=== PATIENT | female | born 1980 | race Caucasian/White ===

== ENCOUNTER 2024-02-20 14:06 | Inpatient (IN) ==
[2024-02-20] MEDS: Ondansetron 4 mg VIAL 2 MG/ML 2 ml VIAL IV ONE (16:12)
[2024-02-20] MEDS: Cefepime 2 GM in Dextrose 2 GM/50 ML BAG IV ONE (16:44)
[2024-02-20 16:48] LABS: ABS Basophils 0.1 10^3/uL (0.0-0.1); ABS Eosinophils 0.1 10^3/uL (0.0-0.5); ABS Lymphocytes 1.3 10^3/uL (1.0-4.8); ABS Monocytes 0.8 10^3/uL (0.0-0.9); ABS Neutrophils 5.9 10^3/uL (1.5-7.6); Eosinophil % 1.5 %; Hematocrit 29.4 % (35-45); Hemoglobin 10.1 g/dL (11.5-14.3); Lymphocyte % 15.9 %; Mean Corpuscular Hemoglobin 30.8 pg (27-33); Mean Corpuscular Hgb Conc 34.4 g/dL (31-36); Mean Corpuscular Volume 89.7 fL (80-97); Mean Platelet Volume 7.6 fL (7.5-11.2); Platelet Count 554 10^3/uL (150-450); Red Blood Count 3.28 10^6/uL (3.63-4.92); Red Cell Distribution Width 14.1 % (12-17); White Blood Count 8.2 10^3/uL (3.8-11.8)
[2024-02-20] MEDS: Lactated Ringers 1000 ml BAG 1,000 ML IV SCH (16:52)
[2024-02-20] MEDS: metroNIDAZOLE IV 500 MG/100ML 500 MG/100 ML BAG IVPB ONE (17:08)
[2024-02-20 17:12] LABS: ALT 10 U/L (7-52); AST 19 U/L (13-39); Albumin 3.9 g/dL (3.2-5.2); Albumin/Globulin Ratio 1.6 (1-3); Alkaline Phosphatase 64 U/L (35-149); Anion Gap 6 mmol/L (2-16); Blood Urea Nitrogen 17 mg/dL (6-24); C Reactive Protein 21.28 mg/L (<8.01); CO2 Carbon Dioxide 26 mmol/L (22-32); Chloride 107 mmol/L (101-111); Creatinine, Serum 0.99 mg/dL (0.51-0.95); Globulin 2.4 g/dL (2-4); Glucose 86 mg/dL (70-100); Sodium 139 mmol/L (135-145); Total Bilirubin 0.2 mg/dL (0.2-1.0); Total Protein 6.3 g/dL (6.4-8.9)
[2024-02-20 17:16] LABS: HCG Pregnancy < 0.60 mIU/mL
[2024-02-20] MEDS: HYDROmorphone 1 MG/1 ML SYRINGE IV SLOW PU ONE (18:36)
[2024-02-20] MEDS: Vancomycin 1,000 MG in NS 0.9% 250 ml 250 ML IVPB ONE (19:39)
[2024-02-20] MEDS ORDERED: Morphine 2 MG/ML SYRINGE IV PRN (21:11)
[2024-02-20] MEDS ORDERED: Senna TAB 8.6 mg TAB PO PRN (21:12)
[2024-02-20] MEDS ORDERED: Polyethylene Glycol 3350 17 GM PACKET PO PRN (21:12)
[2024-02-20] MEDS ORDERED: Vancomycin per Pharmacy 1 EA NOTE FOLLOW UP SCH (22:00)
[2024-02-20] MEDS: Vancomycin 1000 MG in NS 0.9% 250 ML IVPB SCH (22:32)
[2024-02-20] MEDS ORDERED: HYDROmorphone 0.5 MG/0.5 ML SYRINGE IV SLOW PU PRN (23:28)
[2024-02-21] MEDS: Heparin 5000 UNITS/ML 1 mL VIAL SUBCUT ONE (01:41)
[2024-02-21 06:14] LABS: ABS Basophils 0.1 10^3/uL (0.0-0.1); ABS Eosinophils 0.2 10^3/uL (0.0-0.5); ABS Lymphocytes 1.5 10^3/uL (1.0-4.8); ABS Monocytes 0.8 10^3/uL (0.0-0.9); ABS Neutrophils 4.5 10^3/uL (1.5-7.6); Eosinophil % 2.9 %; Hematocrit 27.5 % (35-45); Hemoglobin 9.3 g/dL (11.5-14.3); Lymphocyte % 20.7 %; Mean Corpuscular Hemoglobin 30.8 pg (27-33); Mean Corpuscular Hgb Conc 33.9 g/dL (31-36); Mean Corpuscular Volume 90.8 fL (80-97); Mean Platelet Volume 7.5 fL (7.5-11.2); Platelet Count 480 10^3/uL (150-450); Red Blood Count 3.03 10^6/uL (3.63-4.92); Red Cell Distribution Width 13.8 % (12-17)
[2024-02-21] MEDS: Cefepime 2 GM in Dextrose 2 GM/50 ML BAG IV SCH (06:19)
[2024-02-21] MEDS: Vancomycin 1000 MG in NS 0.9% 250 ML IVPB SCH (06:20)
[2024-02-21 06:25] LABS: INR 0.96 (0.83-1.13)
[2024-02-21 06:45] LABS: Calcium 8.5 mg/dL (8.6-10.3); Creatinine, Serum 0.83 mg/dL (0.51-0.95); Magnesium 1.9 mg/dL (1.9-2.7); Phosphorus 4.4 mg/dL (2.5-5.0); Potassium 4.6 mmol/L (3.5-5.0); eGFR CKD-EPI 90.2 (>60)
[2024-02-21] MEDS: HYDROmorphone 0.5 MG/0.5 ML SYRINGE IV SLOW PU PRN (08:35)
[2024-02-21] MEDS: Nicotine GUM 4MG FRUIT FLAVOR PO PRN (17:42)
[2024-02-21] MEDS: Enoxaparin 40 MG/0.4 ML SYR SUBCUT SCH (21:15)
[2024-02-22] MEDS: Vancomycin Trough Check NOTE FOLLOW UP ONE (07:25)
[2024-02-22] MEDS: HYDROmorphone 0.5 MG/0.5 ML SYRINGE IV ONE ×2 (12:00→15:01)
[2024-02-22] MEDS: Vancomycin 1000 MG in NS 0.9% 250 ML IVPB SCH (16:28)
[2024-02-23] MEDS ORDERED: Naloxone 0.4 mg VIAL 0.4 mg/ml 1 ml VIAL IV PRN (09:50)
[2024-02-23] MEDS ORDERED: Ondansetron 4 mg VIAL 2 MG/ML 2 ml VIAL IV PRN (09:50)
[2024-02-23] MEDS ORDERED: Metoclopramide 5 MG/ML VIAL (10 mg) IV PRN (09:50)
[2024-02-23] MEDS ORDERED: NS 0.45% 1000 ml BAG 1,000 ML IV SCH (10:00)
[2024-02-23] MEDS ORDERED: Propofol 10 MG/ML 20 ML BTL ONE (10:00)
[2024-02-23] MEDS ORDERED: Lidocaine 2% PF 5 ML VIAL ONE (10:00)
[2024-02-23] MEDS ORDERED: Bupivacaine 0.5% SDV PF 30ML VIAL ONE (10:00)
[2024-02-23] MEDS ORDERED: fentaNYL 250 mcg/5 ml 50 MCG/ML 5 ml VIAL (250 MCG) ONE (10:00)
[2024-02-23] MEDS ORDERED: Lidocaine 1% w EPI 1:200,000 SDV 30 ML VIAL ONE (10:00)
[2024-02-23] MEDS ORDERED: Dexamethasone IV 4 MG/ML VIAL 1 ml VIAL ONE (11:35)
[2024-02-23] MEDS ORDERED: Ondansetron 4 mg VIAL 2 MG/ML 2 ml VIAL ONE (11:35)
[2024-02-23] MEDS ORDERED: Acetaminophen IV 1 GM/100ML 1,000 MG/100 ML BAG IV ONE (11:41)
[2024-02-23] MEDS ORDERED: fentaNYL 100 mcg/2 ml 50 MCG/ML VIAL ONE (12:06)
[2024-02-23] MEDS: fentaNYL 100 mcg/2 ml 50 MCG/ML VIAL IV PRN (12:08)
[2024-02-23] MEDS: Buffered Lidocaine 1% SYRIN 1 ml INTRADERM ONE (12:53)
[2024-02-23] MEDS: Acetaminophen IV 1 GM/100ML 1,000 MG/100 ML BAG IV ONE (12:53)
[2024-02-23] MEDS: Scopolamine 1 mg/72hr PATCH TRANSDERM ONE (12:54)
[2024-02-23] MEDS: Lactated Ringers 1000 ml BAG 1,000 ML IV SCH (14:53)
[2024-02-23] MEDS: Vancomycin Trough Check NOTE FOLLOW UP ONE (15:58)
[2024-02-24 08:34] LABS: Vancomycin Trough 4.7 mcg/mL
[2024-02-24] MEDS: Vancomycin Trough Check NOTE FOLLOW UP ONE (09:18)
[2024-02-24 18:42] LABS: Rheumatoid Factor < 10 IU/mL (<15)
[2024-02-24] MEDS: MINOCYCLINE 50 MG PO SCH (20:50)
[2024-02-25 04:43] LABS: Hepatitis B Surface Antigen Nonreactive (Nonreactive)
[2024-02-25 04:48] LABS: Hepatitis A Ab IgM Negative (Negative)
[2024-02-25 04:49] LABS: Hepatitis B Core IgM Nonreactive (Nonreactive)
[2024-02-25 05:00] LABS: Hepatitis C Antibody Negative (Negative)
[2024-02-25] MEDS: HYDROmorphone 1 MG/1 ML SYRINGE SUBCUT ONE (13:25)
[2024-02-25 15:02] VITALS: BP 116/77
[2024-02-26 13:36] LABS: JO-1 Antibody <0.2 U; RNP Antibody, IgG <0.2 U; SS-A/Ro Antibody <0.2 U; SS-B/La Antibody <0.2 U; Scl 70 Ab, IgG, S <0.2 U; Sm (Smith) IgG Antibody <0.2 U
[2024-02-26 15:30] LABS: Cyclic Citrullinated Pept IgG <15.6 U
[2024-02-26 17:59] LABS: Phospholipid Ab IgG < 9.4 GPL
== END 2024-02-25 15:50 | disposition home or self-care (01) | DRG 384 ==
LOC: ED 14:06 → EDHOLD 14:06 → SUATTDRO 19:01 → MED 20:19 → SUATTDRO 02-22 09:09
PROVIDERS: ADMIT Internal Medicine; ATTEND Student in an Organized Health Care Education/Training Program
PROC: O.GEI&D (2024-02-23 11:15)

== ENCOUNTER 2024-04-26 16:06 | Inpatient (IN) ==
[2024-04-26 16:49] LABS: ABS Basophils 0.1 10^3/uL (0.0-0.1); ABS Eosinophils 0.1 10^3/uL (0.0-0.5); ABS Lymphocytes 1.8 10^3/uL (1.0-4.8); ABS Monocytes 0.6 10^3/uL (0.0-0.9); ABS Neutrophils 6.3 10^3/uL (1.5-7.6); ABS Nucleated RBC 0.01 10^3/ul; Eosinophil % 1.4 %; Hematocrit 33.7 % (35-45); Hemoglobin 11.2 g/dL (11.5-14.3); Lymphocyte % 20.2 %; Mean Corpuscular Hemoglobin 28.3 pg (27-33); Mean Corpuscular Hgb Conc 33.2 g/dL (31-36); Mean Corpuscular Volume 85.3 fL (80-97); Mean Platelet Volume 7.9 fL (7.5-11.2); Nucleated Red Blood Cells % 0.1 %/100WBC (0.0-0.8); Platelet Count 539 10^3/uL (150-450); Red Blood Count 3.95 10^6/uL (3.63-4.92); Red Cell Distribution Width 14.1 % (12-17)
[2024-04-26] MEDS: Lactated Ringers 1000 ml BAG 1,000 ML IV ONE (18:04)
[2024-04-26 18:06] LABS: Albumin 4.5 g/dL (3.2-5.2); Albumin/Globulin Ratio 1.7 (1-3); C Reactive Protein 20.41 mg/L (<8.01); Calcium 9.7 mg/dL (8.6-10.3); Creatinine, Serum 0.98 mg/dL (0.51-0.95); Globulin 2.7 g/dL (2-4); Potassium 3.6 mmol/L (3.5-5.0); Total Bilirubin 0.2 mg/dL (0.2-1.0); Total Protein 7.2 g/dL (6.4-8.9); eGFR CKD-EPI 73.9 (>60)
[2024-04-26 19:16] LABS: Erythrocyte Sed Rate 44 mm/Hr (0-19)
[2024-04-26] MEDS: Iohexol 350 (CONTRAST) 500 ML MDV IV ONE (20:06)
[2024-04-26] MEDS ORDERED: HYDROmorphone 0.5 MG/0.5 ML SYRINGE ONE (22:34)
[2024-04-26] MEDS: HYDROmorphone 0.5 MG/0.5 ML SYRINGE IV ONE ×2 (22:37→23:03)
[2024-04-26] MEDS: Cefepime 1 GM in Dextrose 1 GM/50 ML BAG IV ONE (22:41)
[2024-04-26] MEDS ORDERED: Vancomycin 1,250 MG in NS 0.9% 250 ml 250 ML IVPB SCH (23:00)
[2024-04-26] MEDS: Vancomycin 1,000 MG - ED ONCE IVPB ONE (23:39)
[2024-04-27] MEDS: ceFAZolin 1 GM ADVAN 1 GM in NS 0.9% 50 ML 50 ML IVPB ONE (04:21)
[2024-04-27] MEDS: Piperacillin/Tazobac 3.375 BAG 3.375 GM/100 ML BAG IV ONE (08:46)
[2024-04-27] MEDS: MINOCYCLINE 50 MG PO SCH (08:47)
[2024-04-27] MEDS ORDERED: Zosyn per Pharmacy NOTE FOLLOW UP SCH (09:00)
[2024-04-27] MEDS ORDERED: Morphine 2 MG/ML SYRINGE IV PRN (09:15)
[2024-04-27] MEDS: Morphine 2 MG/ML SYRINGE IV PRN ×2 (09:33→22:47)
[2024-04-27] MEDS: HYDROmorphone 1 MG/1 ML SYRINGE IV PRN (13:15)
[2024-04-27] MEDS: ZOSYN 3.375 GM Q8H per EXTENDED INFUSION IV SCH ×2 (13:24→23:49)
[2024-04-27] MEDS ORDERED: Vancomycin per Pharmacy 1 EA NOTE FOLLOW UP SCH (17:00)
[2024-04-27] MEDS: Enoxaparin 40 MG/0.4 ML SYR SUBCUT ONE (18:18)
[2024-04-27] MEDS: Vancomycin 1,000 MG in NS 0.9% 250 ml 250 ML IVPB ONE (18:34)
[2024-04-27 20:01] LABS: ABS Basophils 0.1 10^3/uL (0.0-0.1); ABS Eosinophils 0.2 10^3/uL (0.0-0.5); ABS Lymphocytes 1.5 10^3/uL (1.0-4.8); ABS Monocytes 0.8 10^3/uL (0.0-0.9); ABS Neutrophils 6.4 10^3/uL (1.5-7.6); ABS Nucleated RBC 0.01 10^3/ul; Eosinophil % 2.3 %; Hemoglobin 9.8 g/dL (11.5-14.3); Lymphocyte % 16.4 %; Mean Corpuscular Hemoglobin 28.9 pg (27-33); Mean Corpuscular Hgb Conc 33.8 g/dL (31-36); Mean Corpuscular Volume 85.5 fL (80-97); Mean Platelet Volume 7.5 fL (7.5-11.2); Nucleated Red Blood Cells % 0.1 %/100WBC (0.0-0.8); Platelet Count 415 10^3/uL (150-450); Red Blood Count 3.39 10^6/uL (3.63-4.92); Red Cell Distribution Width 13.9 % (12-17)
[2024-04-27 21:46] LABS: Calcium 8.3 mg/dL (8.6-10.3); Creatinine, Serum 0.88 mg/dL (0.51-0.95); Magnesium 1.6 mg/dL (1.9-2.7); Potassium 4.1 mmol/L (3.5-5.0); eGFR CKD-EPI 84.1 (>60)
[2024-04-28] MEDS: Vancomycin 1000 MG in NS 0.9% 250 ML IVPB SCH (05:54)
[2024-04-28 07:39] LABS: Hematocrit 28.7 % (35-45); Hemoglobin 9.6 g/dL (11.5-14.3); Mean Corpuscular Hemoglobin 28.7 pg (27-33); Mean Corpuscular Hgb Conc 33.4 g/dL (31-36); Mean Corpuscular Volume 85.9 fL (80-97); Mean Platelet Volume 8.1 fL (7.5-11.2); Platelet Count 372 10^3/uL (150-450); Red Blood Count 3.34 10^6/uL (3.63-4.92); Red Cell Distribution Width 14.3 % (12-17); White Blood Count 7.2 10^3/uL (3.8-11.8)
[2024-04-28 08:37] LABS: Calcium 8.2 mg/dL (8.6-10.3); Creatinine, Serum 0.62 mg/dL (0.51-0.95); Magnesium 1.6 mg/dL (1.9-2.7)
[2024-04-28] MEDS: Magnesium Sulf 4 GM/100 ML IV 4,000 MG/100 ML BAG IVPB ONE (10:07)
[2024-04-28] MEDS: ZOSYN 3.375 GM Q8H per EXTENDED INFUSION IV SCH (12:56)
[2024-04-28] MEDS: HYDROmorphone 1 MG/1 ML SYRINGE IV SLOW PU ONE (15:02)
[2024-04-28] MEDS: Enoxaparin 40 MG/0.4 ML SYR SUBCUT SCH (18:32)
[2024-04-28] MEDS: methylPREDNISolone SOD SUCC 1000 MG in NS 0.9% 100 ML IVPB SCH (21:48)
[2024-04-29 06:36] LABS: Calcium 8.8 mg/dL (8.6-10.3); Creatinine, Serum 0.67 mg/dL (0.51-0.95); Magnesium 1.9 mg/dL (1.9-2.7); Potassium 4.3 mmol/L (3.5-5.0); Vancomycin Trough 6.8 mcg/mL; eGFR CKD-EPI 111.8 (>60)
[2024-04-29] MEDS: Magnesium Sulfate 2 gm BAG 2 GM/50 ML BAG IVPB ONE (08:10)
[2024-04-29] MEDS: Vancomycin Trough Check NOTE FOLLOW UP ONE (08:11)
[2024-04-29 08:21] LABS: ABS Lymphocytes 0.4 10^3/uL (1.0-4.8); ABS Monocytes 0.1 10^3/uL (0.0-0.9); ABS Neutrophils 9.2 10^3/uL (1.5-7.6); Hematocrit 32.7 % (35-45); Hemoglobin 10.9 g/dL (11.5-14.3); Lymphocyte % 4.3 %; Mean Corpuscular Hemoglobin 28.4 pg (27-33); Mean Corpuscular Hgb Conc 33.4 g/dL (31-36); Mean Platelet Volume 7.9 fL (7.5-11.2); Platelet Count 541 10^3/uL (150-450); Red Blood Count 3.85 10^6/uL (3.63-4.92); White Blood Count 9.7 10^3/uL (3.8-11.8)
[2024-04-29 13:56] VITALS: BP 112/74
[2024-04-29] MEDS ORDERED: Vancomycin 1000 MG in NS 0.9% 250 ML IVPB SCH (16:00)
[2024-04-30] MEDS ORDERED: Vancomycin Trough Check NOTE FOLLOW UP ONE (07:30)
== END 2024-04-29 16:45 | disposition home or self-care (01) | DRG 862 ==
LOC: ED 16:06 → EDHOLD 16:06 → SUATTDRO 23:42 → MED 04-27 13:48
PROVIDERS: ADMIT Internal Medicine; ATTEND Student in an Organized Health Care Education/Training Program

== ENCOUNTER 2024-06-13 15:09 | Observation (INO) ==
[2024-06-13 16:34] LABS: ABS Eosinophils 0.1 10^3/uL (0.0-0.5); ABS Lymphocytes 1.2 10^3/uL (1.0-4.8); ABS Monocytes 0.7 10^3/uL (0.0-0.9); ABS Neutrophils 8.9 10^3/uL (1.5-7.6); Eosinophil % 0.7 %; Hematocrit 32.8 % (35-45); Hemoglobin 10.5 g/dL (11.5-14.3); Lymphocyte % 11.2 %; Mean Corpuscular Hemoglobin 26.4 pg (27-33); Mean Corpuscular Hgb Conc 31.9 g/dL (31-36); Mean Corpuscular Volume 82.6 fL (80-97); Mean Platelet Volume 7.7 fL (7.5-11.2); Platelet Count 519 10^3/uL (150-450); Red Blood Count 3.97 10^6/uL (3.63-4.92); Red Cell Distribution Width 15.8 % (12-17)
[2024-06-13 17:12] LABS: Albumin/Globulin Ratio 1.4 (1-3); C Reactive Protein 30.27 mg/L (<8.01); Calcium 9.2 mg/dL (8.6-10.3); Creatinine, Serum 1.37 mg/dL (0.51-0.95); Globulin 2.8 g/dL (2-4); Potassium 3.5 mmol/L (3.5-5.0); Total Bilirubin 0.2 mg/dL (0.2-1.0); Total Protein 6.8 g/dL (6.4-8.9); eGFR CKD-EPI 49.4 (>60)
[2024-06-13] MEDS: HYDROmorphone 0.5 MG/0.5 ML SYRINGE IV SLOW PU ONE (21:25)
[2024-06-13] MEDS: Iodixanol (CONTRAST) 320 MG/ML 100 ML SDV IV ONE (23:20)
[2024-06-14] MEDS: HYDROmorphone 0.5 MG/0.5 ML SYRINGE IV ONE (01:08)
[2024-06-14] MEDS: Vancomycin 1,000 MG in NS 0.9% 250 ml 250 ML IVPB ONE (04:26)
[2024-06-14] MEDS ORDERED: Vancomycin 1,000 MG in NS 0.9% 250 ml 250 ML IVPB SCH (06:48)
[2024-06-14] MEDS ORDERED: Vancomycin per Pharmacy 1 EA NOTE FOLLOW UP PRN (06:49)
[2024-06-14] MEDS ORDERED: Polyethylene Glycol 3350 17 GM PACKET PO PRN (06:54)
[2024-06-14] MEDS: cefTRIAXone 1 gm/50 mL D5W 1 GM/50 ML BAG IV SCH ×2 (07:07→15:21)
[2024-06-14 07:36] LABS: ABS Basophils 0.1 10^3/uL (0.0-0.1); ABS Eosinophils 0.2 10^3/uL (0.0-0.5); ABS Lymphocytes 1.1 10^3/uL (1.0-4.8); ABS Monocytes 1.2 10^3/uL (0.0-0.9); ABS Neutrophils 10.5 10^3/uL (1.5-7.6); Eosinophil % 1.8 %; Hematocrit 33.5 % (35-45); Hemoglobin 10.8 g/dL (11.5-14.3); Lymphocyte % 8.5 %; Mean Corpuscular Hemoglobin 26.8 pg (27-33); Mean Corpuscular Hgb Conc 32.3 g/dL (31-36); Mean Corpuscular Volume 83.1 fL (80-97); Mean Platelet Volume 7.7 fL (7.5-11.2); Platelet Count 447 10^3/uL (150-450); Red Blood Count 4.03 10^6/uL (3.63-4.92); Red Cell Distribution Width 15.7 % (12-17); White Blood Count 13.2 10^3/uL (3.8-11.8)
[2024-06-14 07:53] LABS: Calcium 8.8 mg/dL (8.6-10.3); Potassium 3.6 mmol/L (3.5-5.0); eGFR CKD-EPI 72.1 (>60)
[2024-06-14] MEDS: HYDROmorphone 0.5 MG/0.5 ML SYRINGE IV SLOW PU ONE (08:26)
[2024-06-14] MEDS: Enoxaparin 40 MG/0.4 ML SYR SUBCUT SCH (11:01)
[2024-06-14] MEDS: Vancomycin 1000 MG in NS 0.9% 250 ML IVPB SCH (11:01)
[2024-06-14] MEDS: HYDROmorphone 1 MG/1 ML SYRINGE IV SLOW PU ONE ×2 (12:46→21:03)
[2024-06-14] MEDS ORDERED: Morphine 2 MG/ML SYRINGE IV PRN (19:52)
[2024-06-14] MEDS ORDERED: Senna TAB 8.6 mg TAB PO PRN (19:55)
[2024-06-14] MEDS: HYDROmorphone 1 MG/1 ML SYRINGE IV SLOW PU PRN (19:59)
[2024-06-15] MEDS ORDERED: cefTRIAXone 2 GM ADDV.VIAL 2 GM in NS 0.9% 100 ml BAG 100 ML IV ONE (11:00)
[2024-06-15] MEDS ORDERED: Vancomycin Trough Check NOTE FOLLOW UP ONE (11:30)
[2024-06-15] MEDS ORDERED: Iohexol 350 (CONTRAST) 500 ML MDV IV ONE (11:51)
[2024-06-15] MEDS: cefTRIAXone 2 gm/50 mL D5W 2 GM/50 ML BAG IV ONE (13:37)
[2024-06-16] MEDS: cefTRIAXone 1 gm/50 mL D5W 1 GM/50 ML BAG IV SCH (12:45)
[2024-06-16 14:27] VITALS: BP 117/70
== END 2024-06-16 16:00 | disposition home or self-care (01) ==
LOC: EDHOLD 15:09 → ED 15:09 → SUATTDRO 06-14 00:56 → MED 06-14 15:22
PROVIDERS: ADMIT Internal Medicine; ATTEND Student in an Organized Health Care Education/Training Program

== ENCOUNTER 2024-09-11 17:39 | Observation (INO) ==
[2024-09-11 18:47] LABS: ABS Basophils 0.1 10^3/uL (0.0-0.1); ABS Eosinophils 0.1 10^3/uL (0.0-0.5); ABS Lymphocytes 1.6 10^3/uL (1.0-4.8); ABS Monocytes 1.1 10^3/uL (0.0-0.9); ABS Neutrophils 6.9 10^3/uL (1.5-7.6); Eosinophil % 0.8 %; Hematocrit 32.8 % (35-45); Hemoglobin 10.6 g/dL (11.5-14.3); Lymphocyte % 15.9 %; Mean Corpuscular Hemoglobin 25.8 pg (27-33); Mean Corpuscular Hgb Conc 32.2 g/dL (31-36); Mean Corpuscular Volume 80.2 fL (80-97); Mean Platelet Volume 7.2 fL (7.5-11.2); Platelet Count 718 10^3/uL (150-450); Red Blood Count 4.09 10^6/uL (3.63-4.92); Red Cell Distribution Width 16.6 % (12-17); White Blood Count 9.8 10^3/uL (3.8-11.8)
[2024-09-11 19:21] LABS: Blood Urea Nitrogen 15 mg/dL (6-24); CO2 Carbon Dioxide 23 mmol/L (22-32); Chloride 102 mmol/L (101-111); Glucose 103 mg/dL (70-100); Sodium 132 mmol/L (135-145)
[2024-09-11 19:22] LABS: C Reactive Protein 41.01 mg/L (<8.01); Creatinine, Serum 0.74 mg/dL (0.51-0.95); eGFR CKD-EPI 102.9 (>60)
[2024-09-11 19:25] LABS: Anion Gap 7 mmol/L (2-16)
[2024-09-11] MEDS: HYDROmorphone 0.5 MG/0.5 ML SYRINGE IV ONE ×2 (19:37→22:36)
[2024-09-11 20:13] LABS: Erythrocyte Sed Rate 56 mm/Hr (0-19)
[2024-09-11] MEDS: Cefepime 2 GM in Dextrose 2 GM/50 ML BAG IV ONE (20:14)
[2024-09-11] MEDS ORDERED: Ondansetron 4 mg VIAL 2 MG/ML 2 ml VIAL IV PRN (23:01)
[2024-09-11] MEDS ORDERED: Senna TAB 8.6 mg TAB PO PRN (23:01)
[2024-09-11] MEDS: HYDROmorphone 1 MG/1 ML SYRINGE IV SLOW PU PRN (23:17)
[2024-09-11] MEDS ORDERED: Enoxaparin 40 MG/0.4 ML SYR SUBCUT SCH (23:45)
[2024-09-11] MEDS ORDERED: Vancomycin per Pharmacy 1 EA NOTE FOLLOW UP SCH (23:45)
[2024-09-11] MEDS ORDERED: Nicotine GUM 4MG FRUIT FLAVOR PO PRN (23:58)
[2024-09-12] MEDS: Iohexol 350 (CONTRAST) 500 ML MDV IV ONE (01:43)
[2024-09-12] MEDS: Cefepime 2 GM in Dextrose 2 GM/50 ML BAG IV SCH ×2 (03:31→18:16)
[2024-09-12] MEDS: Vancomycin 1,000 MG - ED ONCE IVPB ONE (05:46)
[2024-09-12 06:16] LABS: ABS Basophils 0.1 10^3/uL (0.0-0.1); ABS Eosinophils 0.1 10^3/uL (0.0-0.5); ABS Lymphocytes 1.3 10^3/uL (1.0-4.8); ABS Monocytes 1.1 10^3/uL (0.0-0.9); ABS Neutrophils 5.9 10^3/uL (1.5-7.6); ABS Nucleated RBC 0.01 10^3/ul; Eosinophil % 1.5 %; Hematocrit 31.5 % (35-45); Hemoglobin 10.1 g/dL (11.5-14.3); Lymphocyte % 15.4 %; Mean Corpuscular Volume 81.2 fL (80-97); Mean Platelet Volume 7.1 fL (7.5-11.2); Nucleated Red Blood Cells % 0.1 %/100WBC (0.0-0.8); Platelet Count 684 10^3/uL (150-450); Red Blood Count 3.88 10^6/uL (3.63-4.92); Red Cell Distribution Width 15.8 % (12-17); White Blood Count 8.4 10^3/uL (3.8-11.8)
[2024-09-12 06:42] LABS: Albumin 3.6 g/dL (3.2-5.2); Albumin/Globulin Ratio 1.3 (1-3); C Reactive Protein 50.12 mg/L (<8.01); Calcium 9.1 mg/dL (8.6-10.3); Creatinine, Serum 0.88 mg/dL (0.51-0.95); Globulin 2.8 g/dL (2-4); Potassium 4.1 mmol/L (3.5-5.0); Total Bilirubin 0.3 mg/dL (0.2-1.0); Total Protein 6.4 g/dL (6.4-8.9); eGFR CKD-EPI 83.6 (>60)
[2024-09-12] MEDS: Enoxaparin 40 MG/0.4 ML SYR SUBCUT SCH (13:00)
[2024-09-12] MEDS: Vancomycin 1000 MG in NS 0.9% 250 ML IVPB SCH ×2 (14:52→21:58)
[2024-09-12] MEDS ORDERED: Cefepime 2 GM in Dextrose 2 GM/50 ML BAG IV SCH (15:00)
[2024-09-13] MEDS: Cefepime 2 GM in Dextrose 2 GM/50 ML BAG IV SCH (05:14)
[2024-09-13] MEDS: Vancomycin Trough Check NOTE FOLLOW UP ONE (07:31)
[2024-09-13] MEDS ORDERED: HYDROmorphone 1 MG/1 ML SYRINGE IV PRN (08:59)
[2024-09-13] MEDS ORDERED: Ondansetron 4 mg VIAL 2 MG/ML 2 ml VIAL IV PRN (08:59)
[2024-09-13] MEDS ORDERED: Naloxone 0.4 mg VIAL 0.4 mg/ml 1 ml VIAL IV PRN (08:59)
[2024-09-13] MEDS ORDERED: Lidocaine 2% PF 5 ML VIAL ONE (09:43)
[2024-09-13] MEDS ORDERED: Midazolam 2 mg/2 ml VIAL 1 mg/ml 2 ml VIAL (2 mg) ONE (09:43)
[2024-09-13] MEDS ORDERED: fentaNYL 100 mcg/2 ml 50 MCG/ML VIAL ONE ×3 (09:43→11:09)
[2024-09-13] MEDS ORDERED: Ondansetron 4 mg VIAL 2 MG/ML 2 ml VIAL ONE (10:22)
[2024-09-13] MEDS ORDERED: Dexamethasone IV 4 MG/ML VIAL 1 ml VIAL ONE (10:22)
[2024-09-13] MEDS ORDERED: Bacitracin OINTMENT TUBE ONE (10:41)
[2024-09-13] MEDS: fentaNYL 100 mcg/2 ml 50 MCG/ML VIAL IV PRN (11:11)
[2024-09-13] MEDS: Metoclopramide 5 MG/ML VIAL (10 mg) IV SLOW PU ONE (12:32)
[2024-09-13] MEDS: cefTRIAXone 1 gm/50 mL D5W 1 GM/50 ML BAG IV SCH (18:15)
[2024-09-14] MEDS ORDERED: LORazepam 2 mg VIAL 1 ml IV PUSH PRN (12:09)
[2024-09-14] MEDS ORDERED: Lorazepam PYXIS KEY PRN (12:09)
[2024-09-14] MEDS: LORazepam 2 mg VIAL 1 ml ONE ×2 (12:18)
[2024-09-14] MEDS: HYDROmorphone 1 MG/1 ML SYRINGE IV SLOW PU ONE (15:15)
[2024-09-14] MEDS: Vancomycin 1000 MG in NS 0.9% 250 ML IVPB SCH (16:09)
[2024-09-15] MEDS ORDERED: Polyethylene Glycol 3350 17 GM PACKET PO PRN (08:54)
[2024-09-15] MEDS: Morphine ER 15 mg TAB ** extended release PO SCH (09:29)
[2024-09-15 14:05] VITALS: BP 101/55
[2024-09-15 22:37] LABS: Cyclic Citrullinated Pept IgG <15.6 U
[2024-09-16] MEDS ORDERED: Vancomycin Trough Check NOTE FOLLOW UP ONE (05:30)
== END 2024-09-15 18:38 | disposition home or self-care (01) ==
LOC: ED 17:39 → EDHOLD 17:39 → SUATTDRO 09-12 04:20 → SSU 09-12 15:39
PROVIDERS: ADMIT Internal Medicine; ATTEND Internal Medicine